=== PATIENT | male | born 1945 | race Caucasian/White ===

== ENCOUNTER 2024-08-15 11:49 | Inpatient (IN) | payer MEDICAID ==
[~2024-08-15] VITALS: Ht 162.6 cm; Wt 70.8 kg
[~2024-08-15 11:49] MED LIST: ALBU18HF2 IH; FURO-151 MT; LEVO25TA7 PO; LEVO750T68 MT; P20 MT
[2024-08-15 12:27] LABS: BASOPHILS % 0.3 % (0.0-2.0); DIFFERENTIAL COMMENT 0; EOSINOPHILS % 2.9 % (0.0-5.0); HEMATOCRIT. 32.7 % (42.0-52.0); HEMOGLOBIN. 10.4 g/dL (14.0-18.0); LYMPHOCYTES % 15.4 % (20.0-50.0); MEAN CORPUSCULAR HEMOGLOBIN 23.2 pg (28.0-32.0); MEAN CORPUSCULAR HGB CONC 31.8 g/dL (31.0-37.0); MEAN PLATELET VOLUME 7.2 fl (7.4-10.4); MONOCYTES % 6.7 % (2.0-8.0); NEUTROPHILS % 74.7 % (40.0-76.0); PLATELET 157 x1000/uL (130-400); RED BLOOD CELL COUNT 4.48 mill/uL (4.7-6.1); WHITE BLOOD COUNT 5.4 x1000/uL (4.5-11.0)
[2024-08-15 12:38] LABS: CARBON DIOXIDE 23 mEq/L (21-32); CHLORIDE 109 mEq/L (98-107); POTASSIUM 3.7 mEq/L (3.5-5.1); SODIUM 138 mEq/L (136-145)
[2024-08-15 12:39] LABS: CALCIUM 8.3 mg/dL (8.7-10.4)
[2024-08-15 12:43] LABS: CREATININE 0.8 mg/dL (0.6-1.3)
[2024-08-15 12:44] LABS: ETHANOL BLOOD < 10 mg/dL (<10); GLUCOSE 155 mg/dL (70-105); UREA NITROGEN BLOOD 12 mg/dL (9-23)
[2024-08-15 12:46] LABS: ALANINE AMINOTRANSFERASE 22 IU/L (10-49); ALBUMIN 3.2 g/dL (3.2-4.8); ASPARTATE AMINOTRANSFERASE 49 IU/L (<34); BILIRUBIN DIRECT 0.6 mg/dL (<=3.0); BILIRUBIN TOTAL 1.5 mg/dL (0.1-1.0); PROTEIN TOTAL 7.2 g/dL (6.0-8.3)
[2024-08-15 13:21] LABS: LACTIC ACID 3.1 mmol/L (0.4-2.0)
[2024-08-15 14:43] LABS: INR 1.2; PARTIAL THROMBOPLASTIN TIME 33.9 sec (23.4-31.0); PROTHROMBIN TIME 13.1 sec (9.6-11.0)
[2024-08-15] MEDS: IOHEXOL-350 100 ML BOTTLE ONE (15:22)
[2024-08-15] MEDS: CEFTRIAXONE 2GM/50ML 50 ML IV ONE (15:58)
[2024-08-15 19:52] VITALS: BP 131/85; PULSE 69; RESP 18; TEMP 36.3; O2SAT 98
[2024-08-15] MEDS ORDERED: ONDANSETRON HCL 4MG/2ML INJ IV PRN (20:00)
[2024-08-15 21:36] VITALS: BP 131/85; PULSE 69; RESP 18; TEMP 36.3
[2024-08-15] MEDS: HYDROCODONE/ACETAMINOPHEN 5/325MG TABLET PO PRN (22:11)
[2024-08-15] MEDS: METOPROLOL TARTRATE 50MG TABLET PO SCH (22:56)
[2024-08-16] VITALS: BP 114/68; PULSE 111; RESP 18; TEMP 37.1; O2SAT 98
[2024-08-16 04:00] VITALS: BP 117/60; PULSE 100; RESP 18; TEMP 36.7; O2SAT 99
[2024-08-16] MEDS: PANTOPRAZOLE 40MG DR TABLET PO SCH (06:34)
[2024-08-16 08:00] VITALS: BP 113/83; PULSE 102; RESP 18; TEMP 36.9; O2SAT 100
[2024-08-16] MEDS ORDERED: NALOXONE HCL 0.4MG/ML VIAL IV PRN (09:00)
[2024-08-16] MEDS ORDERED: LEVOFLOXACIN MT SCH (09:00)
[2024-08-16] MEDS: FUROSEMIDE 40MG TABLET PO SCH (09:38)
[2024-08-16] MEDS: TAMSULOSIN HCL 0.4MG SR CAPSULE PO SCH (09:38)
[2024-08-16 12:00] VITALS: BP 103/61; PULSE 89; RESP 18; TEMP 37.6; O2SAT 95
[2024-08-16 16:00] VITALS: BP 93/53; PULSE 87; RESP 18; TEMP 37.4; O2SAT 95
[2024-08-16] MEDS: ENOXAPARIN 40MG/0.4ML SYR SUBCUT SCH (18:31)
[2024-08-16 20:00] VITALS: BP 98/64; PULSE 107; RESP 20; TEMP 36.8; O2SAT 96
[2024-08-16] MEDS ORDERED: METOPROLOL TARTRATE 50MG TABLET PO SCH (23:00)
[2024-08-17] VITALS: BP 111/67; PULSE 110; RESP 20; TEMP 36.7
[2024-08-17 04:00] VITALS: BP 100/67; PULSE 104; RESP 20; TEMP 36.7; O2SAT 98
[2024-08-17 08:21] VITALS: BP 120/69; PULSE 134; RESP 14; TEMP 36; O2SAT 95
[2024-08-17 12:00] VITALS: BP 103/61; PULSE 103; RESP 17; TEMP 37.1; O2SAT 98
[2024-08-17 14:03] LABS: BASOPHILS % 0.4 % (0.0-2.0); DIFFERENTIAL COMMENT 0; EOSINOPHILS % 2.9 % (0.0-5.0); HEMATOCRIT. 28.7 % (42.0-52.0); HEMOGLOBIN. 9.2 g/dL (14.0-18.0); LYMPHOCYTES % 15.2 % (20.0-50.0); MEAN CORPUSCULAR HEMOGLOBIN 23.1 pg (28.0-32.0); MEAN CORPUSCULAR HGB CONC 31.9 g/dL (31.0-37.0); MEAN CORPUSCULAR VOLUME 72.3 fL (80.0-94.0); MEAN PLATELET VOLUME 7.8 fl (7.4-10.4); MONOCYTES % 7.1 % (2.0-8.0); NEUTROPHILS % 74.4 % (40.0-76.0); PLATELET 124 x1000/uL (130-400); RED BLOOD CELL COUNT 3.97 mill/uL (4.7-6.1); RED CELL DISTRIBUTION WIDTH 18.1 % (11.6-14.6); WHITE BLOOD COUNT 3.7 x1000/uL (4.5-11.0)
[2024-08-17 14:38] LABS: CHLORIDE 105 mEq/L (98-107); POTASSIUM 3.2 mEq/L (3.5-5.1); SODIUM 137 mEq/L (136-145)
[2024-08-17 14:39] LABS: CALCIUM 7.8 mg/dL (8.7-10.4); CARBON DIOXIDE 22 mEq/L (21-32)
[2024-08-17 14:43] LABS: IRON 21 ug/dL (65-175)
[2024-08-17 14:44] LABS: CREATININE 0.9 mg/dL (0.6-1.3); GLUCOSE 140 mg/dL (70-105); UREA NITROGEN BLOOD 14 mg/dL (9-23)
[2024-08-17 14:46] LABS: TOTAL IRON BINDING CAPACITY 307 ug/dl (250-425)
[2024-08-17 14:48] LABS: FERRITIN 28 ng/mL (22-322); FOLIC ACID (FOLATE) SERUM 17.59 ng/mL (>5.38)
[2024-08-17 14:49] LABS: VITAMIN B12 SERUM 1405 pg/mL (211-911)
[2024-08-17] MEDS: POTASSIUM CHLORIDE 20MEQ TABLET SR PO NR (16:19)
[2024-08-17 20:00] VITALS: BP 104/58; PULSE 117; RESP 20; TEMP 36.6; O2SAT 98
[2024-08-18] VITALS: BP 116/72; PULSE 100; RESP 20; TEMP 36.3; O2SAT 95
[2024-08-18 04:00] VITALS: BP 101/69; PULSE 107; RESP 20; TEMP 36.1; O2SAT 95
[2024-08-18 07:25] LABS: BASOPHILS % 0.4 % (0.0-2.0); DIFFERENTIAL COMMENT 0; EOSINOPHILS % 4.6 % (0.0-5.0); HEMATOCRIT. 25.7 % (42.0-52.0); HEMOGLOBIN. 8.4 g/dL (14.0-18.0); LYMPHOCYTES % 19.2 % (20.0-50.0); MEAN CORPUSCULAR HEMOGLOBIN 23.7 pg (28.0-32.0); MEAN CORPUSCULAR HGB CONC 32.7 g/dL (31.0-37.0); MEAN CORPUSCULAR VOLUME 72.4 fL (80.0-94.0); MEAN PLATELET VOLUME 8.7 fl (7.4-10.4); MONOCYTES % 8.1 % (2.0-8.0); NEUTROPHILS % 67.7 % (40.0-76.0); PLATELET 117 x1000/uL (130-400); RED BLOOD CELL COUNT 3.54 mill/uL (4.7-6.1); RED CELL DISTRIBUTION WIDTH 17.9 % (11.6-14.6); WHITE BLOOD COUNT 3.2 x1000/uL (4.5-11.0)
[2024-08-18 07:27] LABS: CARBON DIOXIDE 22 mEq/L (21-32); CHLORIDE 106 mEq/L (98-107); POTASSIUM 3.6 mEq/L (3.5-5.1); SODIUM 138 mEq/L (136-145)
[2024-08-18 07:28] LABS: CALCIUM 7.7 mg/dL (8.7-10.4)
[2024-08-18 07:32] LABS: CREATININE 0.8 mg/dL (0.6-1.3)
[2024-08-18 07:33] LABS: GLUCOSE 93 mg/dL (70-105); UREA NITROGEN BLOOD 14 mg/dL (9-23)
[2024-08-18 08:00] VITALS: BP 129/68; PULSE 160; RESP 18; TEMP 36.8; O2SAT 99
[2024-08-18] MEDS: LABETALOL 5MG/ML 4ML INJ IV NR (10:18)
[2024-08-18 12:00] VITALS: BP 118/60; PULSE 98; RESP 20; TEMP 36.6; O2SAT 100
[2024-08-18 16:00] VITALS: BP 100/58; PULSE 101; RESP 16; TEMP 36.7; O2SAT 97
[2024-08-18 20:00] VITALS: BP 103/76; PULSE 120; RESP 18; TEMP 36.7; O2SAT 97
[2024-08-19] VITALS (10 sets, daily range): BP systolic 97–120; BP diastolic 60–80; PULSE 85–122; RESP 17–26; TEMP 36.2–37; O2SAT 94–98
[2024-08-19] MEDS: AMIODARONE 360MG/200ML 200 ML IV SCH ×2 (06:01→12:26)
[2024-08-19 06:14] LABS: BASOPHILS % 0.4 % (0.0-2.0); DIFFERENTIAL COMMENT 0; EOSINOPHILS % 3.1 % (0.0-5.0); HEMATOCRIT. 25.4 % (42.0-52.0); LYMPHOCYTES % 18.1 % (20.0-50.0); MEAN CORPUSCULAR HEMOGLOBIN 22.9 pg (28.0-32.0); MEAN CORPUSCULAR HGB CONC 31.7 g/dL (31.0-37.0); MEAN CORPUSCULAR VOLUME 72.2 fL (80.0-94.0); MONOCYTES % 9.4 % (2.0-8.0); PLATELET 124 x1000/uL (130-400); RED BLOOD CELL COUNT 3.52 mill/uL (4.7-6.1)
[2024-08-19 06:22] LABS: INR 1.2; PROTHROMBIN TIME 12.9 sec (9.6-11.0)
[2024-08-19 06:35] LABS: CHLORIDE 106 mEq/L (98-107); POTASSIUM 3.5 mEq/L (3.5-5.1); SODIUM 139 mEq/L (136-145)
[2024-08-19 06:39] LABS: CARBON DIOXIDE 22 mEq/L (21-32)
[2024-08-19 06:40] LABS: CALCIUM 7.5 mg/dL (8.7-10.4)
[2024-08-19 06:44] LABS: ALANINE AMINOTRANSFERASE 15 IU/L (10-49); CREATININE 0.8 mg/dL (0.6-1.3)
[2024-08-19 06:45] LABS: GLUCOSE 99 mg/dL (70-105); UREA NITROGEN BLOOD 15 mg/dL (9-23)
[2024-08-19 06:46] LABS: ALBUMIN 2.7 g/dL (3.2-4.8); ASPARTATE AMINOTRANSFERASE 39 IU/L (<34)
[2024-08-19 06:47] LABS: BILIRUBIN DIRECT 0.5 mg/dL (<=3.0); BILIRUBIN TOTAL 1.3 mg/dL (0.1-1.0); PROTEIN TOTAL 6.1 g/dL (6.0-8.3)
[2024-08-19] MEDS: DIGOXIN 500MCG/2ML AMP IV NR (14:16)
[2024-08-20] VITALS (16 sets, daily range): BP systolic 79–121; BP diastolic 41–91; PULSE 107–163; RESP 17–29; TEMP 36.3–37; O2SAT 86–96
[2024-08-20 06:07] LABS: CA 19-9 < 2 U/mL (0-35); CARCINOEMBRYONIC AG - SEND OUT 8.1 ng/mL (0.0-4.7)
[2024-08-20 06:39] LABS: BASOPHILS % 0.4 % (0.0-2.0); DIFFERENTIAL COMMENT 0; EOSINOPHILS % 3.5 % (0.0-5.0); HEMATOCRIT. 26.9 % (42.0-52.0); HEMOGLOBIN. 8.6 g/dL (14.0-18.0); LYMPHOCYTES % 20.9 % (20.0-50.0); MEAN CORPUSCULAR HEMOGLOBIN 23.3 pg (28.0-32.0); MEAN CORPUSCULAR HGB CONC 32.1 g/dL (31.0-37.0); MEAN CORPUSCULAR VOLUME 72.4 fL (80.0-94.0); MEAN PLATELET VOLUME 7.6 fl (7.4-10.4); MONOCYTES % 7.7 % (2.0-8.0); NEUTROPHILS % 67.5 % (40.0-76.0); PLATELET 147 x1000/uL (130-400); RED BLOOD CELL COUNT 3.72 mill/uL (4.7-6.1); WHITE BLOOD COUNT 3.7 x1000/uL (4.5-11.0)
[2024-08-20 07:04] LABS: CARBON DIOXIDE 23 mEq/L (21-32); CHLORIDE 105 mEq/L (98-107); POTASSIUM 3.5 mEq/L (3.5-5.1); SODIUM 138 mEq/L (136-145)
[2024-08-20 07:05] LABS: CALCIUM 8.1 mg/dL (8.7-10.4)
[2024-08-20 07:10] LABS: CREATININE 0.8 mg/dL (0.6-1.3); GLUCOSE 111 mg/dL (70-105); UREA NITROGEN BLOOD 14 mg/dL (9-23)
[2024-08-20 07:11] LABS: ALBUMIN 2.8 g/dL (3.2-4.8)
[2024-08-20 07:12] LABS: ALANINE AMINOTRANSFERASE 15 IU/L (10-49); ASPARTATE AMINOTRANSFERASE 41 IU/L (<34); BILIRUBIN TOTAL 1.1 mg/dL (0.1-1.0); PROTEIN TOTAL 6.5 g/dL (6.0-8.3)
[2024-08-20 09:46] LABS: INR 1.2; PROTHROMBIN TIME 12.7 sec (9.6-11.0)
[2024-08-20] MEDS ORDERED: NALOXONE HCL 0.4MG/ML VIAL IV PRN (21:00)
[2024-08-20] MEDS: HYDROCODONE/ACETAMINOPHEN 5/325MG TABLET PO PRN (21:09)
[2024-08-21] VITALS (17 sets, daily range): BP systolic 83–113; BP diastolic 50–94; PULSE 77–126; RESP 18–29; TEMP 36.5–36.7; O2SAT 92–98
[2024-08-21 05:44] LABS: CARBON DIOXIDE 24 mEq/L (21-32); CHLORIDE 105 mEq/L (98-107); POTASSIUM 3.5 mEq/L (3.5-5.1); SODIUM 138 mEq/L (136-145)
[2024-08-21 05:45] LABS: CALCIUM 7.7 mg/dL (8.7-10.4)
[2024-08-21 05:46] LABS: BASOPHILS % 0.7 % (0.0-2.0); DIFFERENTIAL COMMENT 0; EOSINOPHILS % 4.7 % (0.0-5.0); HEMATOCRIT. 25.1 % (42.0-52.0); HEMOGLOBIN. 8.1 g/dL (14.0-18.0); LYMPHOCYTES % 18.4 % (20.0-50.0); MEAN CORPUSCULAR HGB CONC 32.3 g/dL (31.0-37.0); MEAN CORPUSCULAR VOLUME 71.3 fL (80.0-94.0); MEAN PLATELET VOLUME 8.5 fl (7.4-10.4); MONOCYTES % 8.9 % (2.0-8.0); NEUTROPHILS % 67.3 % (40.0-76.0); PLATELET 124 x1000/uL (130-400); RED BLOOD CELL COUNT 3.52 mill/uL (4.7-6.1); RED CELL DISTRIBUTION WIDTH 18.1 % (11.6-14.6); WHITE BLOOD COUNT 2.9 x1000/uL (4.5-11.0)
[2024-08-21 05:50] LABS: CREATININE 0.8 mg/dL (0.6-1.3); GLUCOSE 103 mg/dL (70-105); UREA NITROGEN BLOOD 14 mg/dL (9-23)
[2024-08-21 05:51] LABS: ALANINE AMINOTRANSFERASE 14 IU/L (10-49); ALBUMIN 2.7 g/dL (3.2-4.8); ASPARTATE AMINOTRANSFERASE 37 IU/L (<34)
[2024-08-21 05:52] LABS: PROTEIN TOTAL 6.2 g/dL (6.0-8.3)
[2024-08-21] MEDS: DIGOXIN 500MCG/2ML AMP IV NR ×2 (14:15→14:16)
[2024-08-21] MEDS: DIGOXIN 125MCG TABLET PO SCH (18:12)
[2024-08-22] VITALS (25 sets, daily range): BP systolic 92–125; BP diastolic 43–102; PULSE 91–129; RESP 15–26; TEMP 36.6–36.8; O2SAT 91–98
[2024-08-22 07:02] LABS: INR 1.3; PROTHROMBIN TIME 13.3 sec (9.6-11.0)
[2024-08-22] MEDS ORDERED: LIDOCAINE HCL 1% 10 MG/ML 10ML VIAL ONE (07:04)
[2024-08-22 07:05] LABS: BASOPHILS % 0.7 % (0.0-2.0); DIFFERENTIAL COMMENT 0; EOSINOPHILS % 3.1 % (0.0-5.0); HEMOGLOBIN. 8.4 g/dL (14.0-18.0); LYMPHOCYTES % 18.3 % (20.0-50.0); MEAN CORPUSCULAR HEMOGLOBIN 23.1 pg (28.0-32.0); MEAN CORPUSCULAR HGB CONC 32.3 g/dL (31.0-37.0); MEAN CORPUSCULAR VOLUME 71.6 fL (80.0-94.0); MEAN PLATELET VOLUME 8.4 fl (7.4-10.4); MONOCYTES % 8.2 % (2.0-8.0); NEUTROPHILS % 69.7 % (40.0-76.0); PLATELET 142 x1000/uL (130-400); RED BLOOD CELL COUNT 3.63 mill/uL (4.7-6.1); RED CELL DISTRIBUTION WIDTH 18.3 % (11.6-14.6); WHITE BLOOD COUNT 3.6 x1000/uL (4.5-11.0)
[2024-08-22 07:09] LABS: CHLORIDE 103 mEq/L (98-107); POTASSIUM 3.7 mEq/L (3.5-5.1); SODIUM 136 mEq/L (136-145)
[2024-08-22 07:10] LABS: CALCIUM 7.7 mg/dL (8.7-10.4); CARBON DIOXIDE 22 mEq/L (21-32)
[2024-08-22 07:15] LABS: CREATININE 0.8 mg/dL (0.6-1.3); GLUCOSE 95 mg/dL (70-105); UREA NITROGEN BLOOD 12 mg/dL (9-23)
[2024-08-22 07:17] LABS: ALANINE AMINOTRANSFERASE 14 IU/L (10-49); ALBUMIN 2.8 g/dL (3.2-4.8); ASPARTATE AMINOTRANSFERASE 39 IU/L (<34); BILIRUBIN TOTAL 1.1 mg/dL (0.1-1.0); PROTEIN TOTAL 6.5 g/dL (6.0-8.3)
[2024-08-22] MEDS ORDERED: FENTANYL CITRATE/PF 50MCG/ML 2ML VIAL ONE (09:12)
[2024-08-22] MEDS: FENTANYL CITRATE/PF 50MCG/ML 2ML VIAL IV ONE (10:00)
[2024-08-22] MEDS ORDERED: FENTANYL CITRATE/PF 50MCG/ML 2ML VIAL IV NR (10:15)
[2024-08-22] MEDS: POTASSIUM CHLORIDE 20MEQ/PACKET PO NR ×2 (11:02→21:28)
[2024-08-22 13:14] LABS: HEMATOCRIT 24.7 % (42.0-52.0)
[2024-08-22] MEDS: DIGOXIN 500MCG/2ML AMP IV NR (21:28)
[2024-08-22] MEDS: AMIODARONE 150MG/100ML D5W 100 ML IV NR (23:49)
[2024-08-23] VITALS (12 sets, daily range): BP systolic 99–136; BP diastolic 47–94; PULSE 71–126; RESP 18–27; TEMP 36.5–37.1; O2SAT 93–98
[2024-08-23] MEDS ORDERED: AMIODARONE 360MG/200ML 200 ML IV SCH
[2024-08-23] MEDS ORDERED: LIDOCAINE HCL/PF 1% 10 MG/ML 5ML VIAL ONE (07:56)
[2024-08-23] MEDS ORDERED: LIDOCAINE HCL 1% 10 MG/ML 10ML VIAL ONE (07:57)
[2024-08-23 13:06] LABS: BASOPHILS % 0.3 % (0.0-2.0); DIFFERENTIAL COMMENT 0; EOSINOPHILS % 2.1 % (0.0-5.0); HEMATOCRIT. 25.1 % (42.0-52.0); HEMOGLOBIN. 8.1 g/dL (14.0-18.0); LYMPHOCYTES % 12.5 % (20.0-50.0); MEAN CORPUSCULAR HEMOGLOBIN 22.8 pg (28.0-32.0); MEAN CORPUSCULAR HGB CONC 32.1 g/dL (31.0-37.0); MEAN PLATELET VOLUME 7.6 fl (7.4-10.4); MONOCYTES % 9.3 % (2.0-8.0); NEUTROPHILS % 75.8 % (40.0-76.0); PLATELET 135 x1000/uL (130-400); RED BLOOD CELL COUNT 3.54 mill/uL (4.7-6.1); RED CELL DISTRIBUTION WIDTH 17.8 % (11.6-14.6); WHITE BLOOD COUNT 3.2 x1000/uL (4.5-11.0)
[2024-08-23 13:10] LABS: CHLORIDE 104 mEq/L (98-107); POTASSIUM 4.4 mEq/L (3.5-5.1); SODIUM 136 mEq/L (136-145)
[2024-08-23 13:11] LABS: CALCIUM 7.6 mg/dL (8.7-10.4); CARBON DIOXIDE 23 mEq/L (21-32); INR 1.3; PROTHROMBIN TIME 13.7 sec (9.6-11.0)
[2024-08-23 13:16] LABS: CREATININE 0.8 mg/dL (0.6-1.3)
[2024-08-23 13:17] LABS: GLUCOSE 101 mg/dL (70-105); UREA NITROGEN BLOOD 13 mg/dL (9-23)
[2024-08-23 13:18] LABS: ALANINE AMINOTRANSFERASE 14 IU/L (10-49); ALBUMIN 2.7 g/dL (3.2-4.8); ASPARTATE AMINOTRANSFERASE 43 IU/L (<34)
[2024-08-23 13:20] LABS: BILIRUBIN TOTAL 1.3 mg/dL (0.1-1.0); PROTEIN TOTAL 6.2 g/dL (6.0-8.3)
[2024-08-24] VITALS (12 sets, daily range): BP systolic 110–158; BP diastolic 42–131; PULSE 69–88; RESP 14–26; TEMP 36.3–36.9; O2SAT 91–99
[2024-08-24] MEDS: AMIODARONE 200MG TABLET PO SCH (08:31)
[2024-08-24 09:29] LABS: BASOPHILS % 0.7 % (0.0-2.0); DIFFERENTIAL COMMENT 0; EOSINOPHILS % 3.1 % (0.0-5.0); HEMATOCRIT. 25.5 % (42.0-52.0); LYMPHOCYTES % 17.1 % (20.0-50.0); MEAN CORPUSCULAR HEMOGLOBIN 22.7 pg (28.0-32.0); MEAN CORPUSCULAR HGB CONC 31.5 g/dL (31.0-37.0); MONOCYTES % 8.8 % (2.0-8.0); NEUTROPHILS % 70.3 % (40.0-76.0); PLATELET 157 x1000/uL (130-400); RED BLOOD CELL COUNT 3.54 mill/uL (4.7-6.1); RED CELL DISTRIBUTION WIDTH 17.8 % (11.6-14.6); WHITE BLOOD COUNT 4.1 x1000/uL (4.5-11.0)
[2024-08-24 09:41] LABS: CHLORIDE 103 mEq/L (98-107); POTASSIUM 4.2 mEq/L (3.5-5.1); SODIUM 135 mEq/L (136-145)
[2024-08-24 09:42] LABS: CALCIUM 7.6 mg/dL (8.7-10.4); CARBON DIOXIDE 22 mEq/L (21-32)
[2024-08-24 09:47] LABS: CREATININE 0.8 mg/dL (0.6-1.3); GLUCOSE 97 mg/dL (70-105); UREA NITROGEN BLOOD 13 mg/dL (9-23)
[2024-08-24 11:38] LABS: ALANINE AMINOTRANSFERASE 12 IU/L (10-49); ALBUMIN 2.5 g/dL (3.2-4.8); ASPARTATE AMINOTRANSFERASE 48 IU/L (<34); BILIRUBIN DIRECT 0.6 mg/dL (<=3.0); BILIRUBIN TOTAL 1.3 mg/dL (0.1-1.0); PROTEIN TOTAL 5.7 g/dL (6.0-8.3)
[2024-08-25] VITALS (12 sets, daily range): BP systolic 119–143; BP diastolic 55–107; PULSE 65–95; RESP 18–26; TEMP 36.1–36.6; O2SAT 89–98
[2024-08-25 06:49] LABS: CARBON DIOXIDE 22 mEq/L (21-32); CHLORIDE 103 mEq/L (98-107); POTASSIUM 3.9 mEq/L (3.5-5.1); SODIUM 136 mEq/L (136-145)
[2024-08-25 06:50] LABS: CALCIUM 7.4 mg/dL (8.7-10.4)
[2024-08-25 06:54] LABS: BASOPHILS % 0.5 % (0.0-2.0); DIFFERENTIAL COMMENT 0; EOSINOPHILS % 3.9 % (0.0-5.0); HEMATOCRIT. 25.6 % (42.0-52.0); HEMOGLOBIN. 8.1 g/dL (14.0-18.0); LYMPHOCYTES % 18.2 % (20.0-50.0); MEAN CORPUSCULAR HEMOGLOBIN 22.5 pg (28.0-32.0); MEAN CORPUSCULAR HGB CONC 31.6 g/dL (31.0-37.0); MEAN CORPUSCULAR VOLUME 71.3 fL (80.0-94.0); MEAN PLATELET VOLUME 8.3 fl (7.4-10.4); MONOCYTES % 9.6 % (2.0-8.0); NEUTROPHILS % 67.8 % (40.0-76.0); PLATELET 158 x1000/uL (130-400); RED BLOOD CELL COUNT 3.59 mill/uL (4.7-6.1); RED CELL DISTRIBUTION WIDTH 17.7 % (11.6-14.6); WHITE BLOOD COUNT 3.7 x1000/uL (4.5-11.0)
[2024-08-25 06:55] LABS: CREATININE 0.8 mg/dL (0.6-1.3); GLUCOSE 89 mg/dL (70-105); UREA NITROGEN BLOOD 14 mg/dL (9-23)
[2024-08-25 08:41] LABS: ALANINE AMINOTRANSFERASE 14 IU/L (10-49); ALBUMIN 2.4 g/dL (3.2-4.8); ASPARTATE AMINOTRANSFERASE 47 IU/L (<34); BILIRUBIN DIRECT 0.5 mg/dL (<=3.0); BILIRUBIN TOTAL 1.1 mg/dL (0.1-1.0); PROTEIN TOTAL 5.8 g/dL (6.0-8.3)
[2024-08-25] MEDS: ENOXAPARIN 80MG/0.8ML SYR SUBCUT SCH (13:42)
[2024-08-25] MEDS: POLYETHYLENE GLYCOL 3350 (17GM) 1 DOSE PACK PO SCH (15:30)
[2024-08-25] MEDS: SENNOSIDES/DOCUSATE SOD 8.6/50MG TABLET PO SCH (15:30)
[2024-08-26] VITALS (10 sets, daily range): BP systolic 117–145; BP diastolic 58–95; PULSE 68–91; RESP 16–23; TEMP 36.6–36.7; O2SAT 92–97
[2024-08-26 06:17] LABS: BASOPHILS % 0.8 % (0.0-2.0); DIFFERENTIAL COMMENT 0; EOSINOPHILS % 3.6 % (0.0-5.0); HEMATOCRIT. 26.5 % (42.0-52.0); HEMOGLOBIN. 8.4 g/dL (14.0-18.0); LYMPHOCYTES % 17.5 % (20.0-50.0); MEAN CORPUSCULAR HEMOGLOBIN 22.6 pg (28.0-32.0); MEAN CORPUSCULAR HGB CONC 31.7 g/dL (31.0-37.0); MEAN CORPUSCULAR VOLUME 71.3 fL (80.0-94.0); MEAN PLATELET VOLUME 7.8 fl (7.4-10.4); MONOCYTES % 9.4 % (2.0-8.0); NEUTROPHILS % 68.7 % (40.0-76.0); PLATELET 202 x1000/uL (130-400); RED BLOOD CELL COUNT 3.71 mill/uL (4.7-6.1); RED CELL DISTRIBUTION WIDTH 18.1 % (11.6-14.6); WHITE BLOOD COUNT 4.6 x1000/uL (4.5-11.0)
[2024-08-26 06:48] LABS: CARBON DIOXIDE 20 mEq/L (21-32); CHLORIDE 102 mEq/L (98-107); POTASSIUM 4.1 mEq/L (3.5-5.1); SODIUM 135 mEq/L (136-145)
[2024-08-26 06:49] LABS: CALCIUM 7.6 mg/dL (8.7-10.4)
[2024-08-26 06:54] LABS: CREATININE 0.9 mg/dL (0.6-1.3); GLUCOSE 96 mg/dL (70-105); UREA NITROGEN BLOOD 13 mg/dL (9-23)
[2024-08-26] MEDS ORDERED: PANT40TA51 PO (11:22)
[2024-08-26] MEDS ORDERED: APIX5TAB MT (11:22)
[2024-08-26] MEDS ORDERED: METO-539 PO (11:22)
== END 2024-08-26 18:46 | disposition home or self-care (01) | DRG 281 ==
LOC: ER 11:49 → 8WST 16:11 → EDBEDREQ 16:13 → EDBEDREQTM 16:13 → EDBEDREQSVC 16:13 → ENRESERV 17:06 → 5EST 08-19 05:24
PROVIDERS: ADMIT Internal Medicine; ATTEND Internal Medicine
PROC: 0FB03ZX Excision of Liver, Percutaneous Approach, Diagnostic (ICD-10-PCS; principal; 2024-08-22)
PROC: 0W9G30Z Drainage of Peritoneal Cavity with Drainage Device, Percutaneous Approach (ICD-10-PCS; 2024-08-23)
DX: C22.0 Liver cell carcinoma (principal); D69.6 Thrombocytopenia, unspecified; K76.6 Portal hypertension; E88.09 Other disorders of plasma-protein metabolism, not elsewhere classified; R18.8 Other ascites; K74.60 Unspecified cirrhosis of liver; D50.9 Iron deficiency anemia, unspecified; I50.9 Heart failure, unspecified; F10.10 Alcohol abuse, uncomplicated; E87.6 Hypokalemia; I08.1 Rheumatic disorders of both mitral and tricuspid valves; R16.1 Splenomegaly, not elsewhere classified; K42.9 Umbilical hernia without obstruction or gangrene; K40.20 Bilateral inguinal hernia, without obstruction or gangrene, not specified as recurrent; K80.20 Calculus of gallbladder without cholecystitis without obstruction; I48.0 Paroxysmal atrial fibrillation; J44.9 Chronic obstructive pulmonary disease, unspecified; N40.0 Benign prostatic hyperplasia without lower urinary tract symptoms; F41.9 Anxiety disorder, unspecified; Z88.8 Allergy status to other drugs, medicaments and biological substances; Z79.899 Other long term (current) drug therapy
CPT/HCPCS: 36415; 49083; 74176; 74177; 76705; 76942; 80048; 80053; 80076; 80320; 82105; 82270; 82378; 82607; 82728; 82746; 83540; 83550; 83605; 83735; 85014; 85018; 85025; 85044; 86301; 86850; 86900; 88307; 97162; 99285; A4606; J0282; J0696; J1160; J1650; J2003; J3010; J3490; Q9967; G0480